=== PATIENT | female | born 1970 | race Caucasian/White ===

== ENCOUNTER → 2018-02-20 | Outpatient (CLI) | payer BC ==
[~2018-02-20] MED LIST: CIPRO500 MG PO; ELAVIL50 MG PO; NORVASC5 MG PO; OXYCODONE HCL5 MG PO; PERCOCET 5/31 TABLET PO; PREMARIN0.625 MG PO; TOPROL XL100 MG PO
== END | disposition home or self-care (01) ==
LOC: CDC 10:20
DX: Z01.810 Encounter for preprocedural cardiovascular examination (principal); M79.642 Pain in left hand; G56.03 Carpal tunnel syndrome, bilateral upper limbs; G56.22 Lesion of ulnar nerve, left upper limb; M54.2 Cervicalgia; R00.0 Tachycardia, unspecified; R94.31 Abnormal electrocardiogram [ECG] [EKG]
CPT/HCPCS: 93000

== ENCOUNTER 2018-03-24 11:28 | Emergency (ER) | payer OTHER, BC ==
[~2018-03-24] VITALS: Ht 162.6 cm; Wt 75.2 kg
[2018-03-24] MEDS ORDERED: PERCOCET 5/31 TABLET PO (13:14)
[2018-03-24] MEDS ORDERED: FLEXERIL10 MG PO (13:14)
[2018-03-24] MEDS ORDERED: ZOFRAN ODT4 MG PO (13:14)
[2018-03-24 13:22] VITALS: BP 144/98
== END 2018-03-24 13:24 | disposition home or self-care (01) ==
LOC: EME 11:28
DX: S16.1XXA Strain of muscle, fascia and tendon at neck level, initial encounter (principal); V28.1XXA Motorcycle passenger injured in noncollision transport accident in nontraffic accident, initial encounter; Z98.1 Arthrodesis status
CPT/HCPCS: 72125; 99281; 99284